=== PATIENT | male | born 1960 | race Caucasian/White ===

== ENCOUNTER 2024-07-29 15:06 | Emergency (ER) | payer BC ==
[2024-07-29 15:42] LABS: Absolute Basophils 0.1 K/uL (0-0.5); Absolute Eosinophils 0.2 K/uL (0-0.5); Absolute Lymphocytes (CBC) 1.2 K/uL (0.7-4.9); Absolute Monocytes 0.8 K/uL (0.1-1.3); Absolute Neutrophil 8.7 K/uL (1.8-8.0); Basophils % 0.7 % (0-1.3); Eosinophils % 1.4 % (0-4.4); Hematocrit 42.6 % (39.6-49.0); Hemoglobin 13.9 g/dL (13.6-17.9); Lymphocytes % 11.2 % (15.3-44.8); MCH 30.8 pg (27.0-35.0); MCHC 32.5 g/dL (32.0-36.0); MCV 94.5 fL (80-100); MPV 10.1 fL (7.6-11.3); Monocytes % 7.6 % (3.3-12.3); Neutrophils % 79.1 % (41.7-73.7); Nucleated Red Blood Cells % 0.1 % (0-0); Platelets 180 thou/uL (152-406); RBC Red Blood Cell Count 4.51 M/uL (4.33-5.43); Red Cell Distribution Width 15.1 % (12.1-15.2)
--- NOTE | 2024-07-29 15:42 | RAD REPORT ---
Procedure: Chest Single View HISTORY: Syncope COMPARISON: none FINDINGS: The lungs appear clear of acute infiltrate. No significant pleural effusion noted. The heart is normal size. IMPRESSION: No acute abnormality is displayed.
[2024-07-29 15:49] LABS: PT Prothrombin Time 11.5 SECONDS (9.4-12.5); PTT, Activated Partial Thromb 26.8 SECONDS (24.3-36.9); Protime INR 1.03
[2024-07-29 16:02] LABS: ALT/SGPT 25 U/L (16-61); AST/SGOT 14 U/L (15-37); Albumin 3.7 g/dL (3.4-5.0); Albumin/Globulin Ratio 1.1 (1.1-1.8); Alkaline Phosphatase 58 U/L (45-117); BUN Blood Urea Nitrogen 23 mg/dL (7-18); Bicarbonate 25 mEq/L (21-32); Bilirubin Total 0.4 mg/dL (0.2-1.0); Creatine Phosphokinase 49 U/L (39-308); Globulin 3.3 g/dL (2.3-3.5); Glomerular Filtration Rate 51 ml/min (=/>90); Glucose Level 105 mg/dL (74-106); Magnesium 1.6 mg/dL (1.6-2.4); Sodium Level 138 mEq/L (136-145)
[2024-07-29 16:03] LABS: Bilirubin Direct < 0.2 mg/dL (0-0.2); Bilirubin Indirect, Calculated 0.2 mg/dL (0.2-0.8)
--- NOTE | 2024-07-29 16:28 | EDPHYS ---
Physician Documentation [facility] Name: Marlon Stringer Age: 63 yrs Sex: Male : 1960 Arrival Date: 07/29/2024 Time: 15:06 Bed 17 Private MD: ED Physician Gerardo Lynn HPI: 07/29 16:43 This 63 yrs old Male presents to ER via EMS with complaints of Near Syncope. 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 Pt and deny LOC. Pt states his symptoms are resolved at this time. . Historical: - Allergies: 15:15 No Known Allergies; me1 - PMHx: 15:15 Hypertensive disorder; me1 - PSHx: 15:15 None; me1 - Immunization history:: Adult Immunizations up to date. - Infectious Disease History:: Denies. - Social history:: Smoking status: Patient reports the use of cigarette tobacco products, smokes one pack cigarettes per day. ROS: 16:25 Constitutional: As per HPI kb Exam: 15:51 Constitutional: This is a well developed, well nourished patient who is awake, alert, kb and in no acute distress. Head/Face: Normocephalic, atraumatic. ENT: Moist Mucous membranes Cardiovascular: Regular rate Respiratory: Respirations even and unlabored. No increased work of breathing. Talking in full sentences Abdomen/GI: Soft, non-tender. No distention Skin: Warm, dry with normal turgor. Normal color. MS/ Extremity: Pulses equal, no cyanosis. Neurovascular intact. Full, normal range of motion. Neuro: Awake and alert, GCS 15, oriented to person, place, time, and situation. Moves all extremities. Normal gait. 15:51 ECG was reviewed by the Attending Physician. Vital Signs: 14:58 BP 105 / 56 Supine; Pulse 82; Resp 17; Pulse Ox 92% on R/A; me1 14:59 BP 111 / 63 Sitting; Pulse 85; Resp 18; Pulse Ox 92% ; me1 15:00 BP 104 / 47 Standing; Pulse 85; Resp 18; Pulse Ox 92% ; me1 15:11 BP 103 / 66; Pulse 91; Resp 17; Temp 98.4; Pulse Ox 91% ; Weight 113.4 kg; Height 6 ft. me1 3 in. ; Pain 0/10; 16:00 BP 121 / 63; Pulse 75; Resp 16; Pulse Ox 98% ; me1 16:29 BP 126 / 63; Pulse 77; Resp 14; Temp 98.4; Pulse Ox 99% ; me1 15:11 Body Mass Index 31.25 (113.40 kg, 190.5 cm) me1 15:11 Pain Scale: Adult me1 MDM: 15:08 Patient medically screened. kb 16:25 Data reviewed: vital signs, nurses notes. kb 16:42 Differential Diagnosis: cardiac arrhythmia, idiopathic syncope, vasovagal episode, kb dehydration, heat exhaustion. Consideration of Admission/Observation Escalation of care including admission/observation considered. admission considered for near syncope, but symptoms resolved after pt cooled off, no neuro deficits. Pt states he is feeling better and ready to go home. . Historians other than the Patient: EMS: [facility]. Counseling: I had a detailed discussion with the patient and/or guardian regarding the historical points, exam findings, and any diagnostic results supporting the discharge/admit diagnosis, lab results, the need for outpatient follow up, a family practitioner, to return to the emergency department if symptoms worsen or persist or if there are any questions or concerns that arise at home. 07/29 15:09 Order name: Basic Metabolic Panel; Complete Time: 16:09 kb 07/29 15:09 Order name: CBC with Diff; Complete Time: 15:45 kb 07/29 15:09 Order name: Hepatic Function; Complete Time: 16:09 kb 07/29 15:09 Order name: Magnesium; Complete Time: 16:09 kb 07/29 15:09 Order name: Protime (+inr); Complete Time: 15:51 kb 07/29 15:09 Order name: Ptt, Activated; Complete Time: 15:51 kb 07/29 15:09 Order name: Troponin High Sensitivity; Complete Time: 16:09 kb 07/29 15:09 Order name: CPK; Complete Time: 16:09 kb 07/29 15:09 Order name: Chest Single View XRAY; Complete Time: 15:44 kb 07/29 15:09 Order name: Cardiac monitoring; Complete Time: 15:46 kb 07/29 15:09 Order name: EKG - Nurse/Tech; Complete Time: 15:46 kb 07/29 15:09 Order name: IV Saline Lock; Complete Time: 15:37 kb 07/29 15:09 Order name: Labs collected and sent; Complete Time: 15:37 kb 07/29 15:09 Order name: NPO; Complete Time: 15:20 kb 07/29 15:09 Order name: O2 Per Protocol; Complete Time: 15:20 kb 07/29 15:09 Order name: O2 Sat Monitoring; Complete Time: 15:20 kb 07/29 15: Order name: Orthostatics; Complete Time: 15:20 kb EC:51 Rate is 84 beats/min. Rhythm is regular. QRS [place] is Normal. DC interval is normal at kb 162 msec. QRS interval is normal at 78 msec. QT interval is normal at 444 msec. Administered Medications: No medications were administered Disposition Summary: 07/29/24 16:28 Discharge Ordered Notes: Location: Home kb Condition: Stable kb Diagnosis - Syncope Near kb Followup: kb - With: Emergency Department - When: As needed - Reason: Worsening of condition Followup: kb - With: Private Physician - When: 2 - 3 days - Reason: Recheck today's complaints, Continuance of care, Re-evaluation by your physician Discharge Instructions: - Discharge Summary Sheet kb - Near-Syncope, [id number] kb - Heat Exhaustion kb Forms: - Work release form kb - Medication Reconciliation Form kb - Antibiotic Education kb - Prescription Opioid Use kb - Patient Portal Instructions kb - Leadership Thank You Letter kb Addendum: 07/31/2024 17:58 I was immediately available for consultation during this patient's visit. I did not e c2 personally see the patient or discuss the patient with the JOHN. . Signatures: Dispatcher [employer] Lyssa Baldwin, SOLE MOLDING MACHINE OPERATOR-C SOLE MOLDING MACHINE OPERATOR-Ckb Courtney Hemphill, RN RN me1 Gerardo Lynn MD MD ec2 Corrections: (The following items were deleted from the chart) 07/29 15:09 15:09 BASIC METABOLIC PANEL+C.LAB.BRZ ordered. EDMS EDMS 15:09 15:09 CBC+H.LAB.BRZ ordered. EDMS EDMS 15:09 15:09 HEPATIC FUNCTION+C.LAB.BRZ ordered. EDMS EDMS 15:09 15:09 MAGNESIUM+C.LAB.BRZ ordered. EDMS EDMS 15:09 15:09 PROTIME (+INR)+COAG.LAB.BRZ ordered. EDMS EDMS : 15:09 PTT, ACTIVATED+COAG.LAB.BRZ ordered. EDMS EDMS : 15:09 Troponin High Sensitivity+C.LAB.BRZ ordered. EDMS EDMS : 15:09 Urinalysis+U.LAB.BRZ ordered. EDMS EDMS : 15:09 CREATINE PHOSPHOKINASE+C.LAB.BRZ ordered. EDMS EDMS : 15:09 Chest Single View+RAD.RAD.BRZ ordered. EDMS EDMS
--- NOTE | 2024-07-29 16:28 | ER ---
Nurse's Notes [facility] Name: Marlon Stringer Age: 63 yrs Sex: Male : 1960 Arrival Date: 07/29/2024 Time: 15:06 Bed 17 Private MD: Diagnosis: Syncope Near Presentation: 07/29 15:11 Chief complaint: EMS states: toned out for near syncopal episode while mowing. Patient me1 did report blurry vision that has resolved. 20g to R hand with NS infusing. Coronavirus screen: Vaccine status: Patient reports receiving the 2nd dose of the covid vaccine. Ebola Screen: No symptoms or risks identified at this time. Initial Sepsis Screen: Does the patient meet any 2 criteria? No. Patient's initial sepsis screen is negative. Does the patient have a suspected source of infection? No. Patient's initial sepsis screen is negative. Risk Assessment: Do you want to hurt yourself or someone else? Patient reports no desire to harm self or others. Onset of symptoms was July 29, 2024. 15:11 Method Of Arrival: EMS: [facility] [place] 15:11 Acuity: LISA 3 me1 Triage Assessment: 15:15 General: Appears comfortable, well groomed, well developed, well nourished, Behavior is me1 calm, cooperative, appropriate for age, Reports almost passed out while mowing the yard. Pain: Denies pain. EENT: No signs and/or symptoms were reported regarding the EENT system. Neuro: Level of Consciousness is awake, alert, obeys commands, Oriented to person, place, time, situation, Appropriate for age. Neuro: Reports a syncopal episode. Cardiovascular: Patient's skin is warm and dry. Respiratory: Airway is patent Respiratory effort is even, unlabored, Respiratory pattern is regular, symmetrical. GI: No signs and/or symptoms were reported involving the gastrointestinal system. : No signs and/or symptoms were reported regarding the genitourinary system. Derm: Skin is intact, is healthy with good turgor, Skin is pink, warm \T\ dry. Musculoskeletal: No signs and/or symptoms reported regarding the musculoskeletal system. Historical: - Allergies: 15:15 No Known Allergies; me1 - PMHx: 15:15 Hypertensive disorder; me1 - PSHx: 15:15 None; me1 - Immunization history:: Adult Immunizations up to date. - Infectious Disease History:: Denies. - Social history:: Smoking status: Patient reports the use of cigarette tobacco products, smokes one pack cigarettes per day. Screenin:18 [facility] ED Fall Risk Assessment (Adult) History of falling in the last 3 months, me1 including since admission No falls in past 3 months (0 pts) Confusion or Disorientation No (0 pts) Intoxicated or Sedated No (0 pts) Impaired Gait No (0 pts) Mobility Assist Device Used No (0 pt) Altered Elimination No (0 pt) Score/Fall Risk Level 0 - 2 = Low Risk Maintained a safe environment, Provided non-skid footwear, Hourly rounding (assess needs \T\ fall precautionary measures) done. Abuse screen: Denies threats or abuse. Nutritional screening: No deficits noted. Tuberculosis screening: No symptoms or risk factors identified. Assessment: 15:18 General: See triage assessment. . me1 Vital Signs: 14:58 BP 105 / 56 Supine; Pulse 82; Resp 17; Pulse Ox 92% on R/A; me1 14:59 BP 111 / 63 Sitting; Pulse 85; Resp 18; Pulse Ox 92% ; me1 15:00 BP 104 / 47 Standing; Pulse 85; Resp 18; Pulse Ox 92% ; me1 15:11 BP 103 / 66; Pulse 91; Resp 17; Temp 98.4; Pulse Ox 91% ; Weight 113.4 kg; Height 6 ft. me1 3 in. ; Pain 0/10; 16:00 BP 121 / 63; Pulse 75; Resp 16; Pulse Ox 98% ; me1 16:29 BP 126 / 63; Pulse 77; Resp 14; Temp 98.4; Pulse Ox 99% ; me1 15:11 Body Mass Index 31.25 (113.40 kg, 190.5 cm) me1 15:11 Pain Scale: Adult me1 ED Course: 15:08 Patient arrived in ED. kb 15:08 Lyssa Butler [facility]-C [facility]. kb 15:08 Gerardo Lynn MD is Attending Physician. kb 15:11 Courtney Hemphill, ROMAN is Primary Nurse. me1 15:14 Triage completed. me1 15:15 Arm band placed on Patient placed in an exam room. me1 15:18 Patient has correct armband on for positive identification. Bed in low position. Call me1 light in reach. Side rails up X2. Provided Education on: POC. Verbalized understanding. . Client placed on continuous cardiac and pulse oximetry monitoring. NIBP monitoring applied. Pulse ox on. NIBP on. 15:18 No provider procedures requiring assistance completed. me1 15:18 Maintain EMS IV. Dressing intact. Good blood return noted. Site clean \T\ dry. Gauge \T\ me 1 site: 20g R hand. 15:30 Chest Single View XRAY In Process Unspecified. EDMS 15:37 Basic Metabolic Panel Sent. me1 15:37 CBC with Diff Sent. me1 15:37 Hepatic Function Sent. me1 15:37 Magnesium Sent. me1 15:37 Protime (+inr) Sent. me1 15:37 Ptt, Activated Sent. me1 15:37 Troponin High Sensitivity Sent. me1 15:38 Initial lab(s) drawn, by me, sent to lab. me1 15:46 EKG done, by ED staff, reviewed by Courtney Hemphill RN. me1 16:47 IV discontinued, intact, bleeding controlled, No redness/swelling at site. Pressure me1 dressing applied. Administered Medications: No medications were administered Medication: 15:18 VIS not applicable for this client. me1 Outcome: 16:28 Discharge ordered by . kb 16:47 Discharged to home ambulatory, with significant other, me1 16:47 Condition: stable 16:47 Discharge instructions given to patient, significant other, Instructed on discharge instructions, follow up and referral plans. Demonstrated understanding of instructions, follow-up care, 16:47 Patient left the ED. me1 Signatures: Dispatcher [employer] EDLyssa Rodas, COMPLIANCE REPRESENTATIVE DEALER-C COMPLIANCE REPRESENTATIVE DEALER-Courtney Morales, RN RN me1
[2024-07-29 19:06] VITALS: TEMP 98.4
[2024-07-29 19:10] VITALS: BP 126/63; O2SAT 99
== END 2024-07-29 16:47 | disposition home or self-care (01) ==
LOC: ER 15:06
DX: R55 Syncope and collapse (principal); I10 Essential (primary) hypertension; F17.210 Nicotine dependence, cigarettes, uncomplicated
CPT/HCPCS: 36415; 71045; 80048; 80076; 82550; 83735; 84484; 85025; 85610; 85730; 93005